=== PATIENT | male | born 1960 | race Caucasian/White ===

== ENCOUNTER 2020-01-13 00:01 | Inpatient (IN) | payer OTHER ==
[~2020-01-13] VITALS: Ht 167.6 cm; Wt 91.0 kg
[~2020-01-13 00:01] MED LIST: ETOMIDATE 20 MG/10 ML ONE; PROPOFOL 10 MG/ML, 100ML IV ONE; PROPOFOL 10 MG/ML, 20ML ONE; SUCCINYLCHOLINE 20 MG/ML, 10ML ONE; VECURONIUM 10 MG ONE
--- NOTE | 2020-01-13 00:05 | NUR ---
pt BIB [facility] c/o S/O sternal CP. pt is here from [facility] where keira [place]. pt reports that he sis not drive here, that he flew. pt has a hx of mulitple cardiac problems including CABG x4, stent x2 HTN, DM and high cholesterol. initial pain was 9/10, pt medicated [facility] [employer] and pain is now 2/10. code cardiac has been initiated.
[2020-01-13] MEDS ORDERED: NITROGLYCERIN/D5W PMX 250 ML IV PRN (00:09)
[2020-01-13 00:17] LABS: BASOPHILS # (AUTO) 0.04 x10^3/uL (0-0.1); BASOPHILS % (AUTO) 1 % (0-1); EOSINOPHILS # (AUTO) 0.14 x10^3/uL (0-0.4); EOSINOPHILS % (AUTO) 2 % (1-7); LYMPHOCYTES # (AUTO) 1.31 x10^3/uL (1-3.4); LYMPHOCYTES % (AUTO) 17 % (22-44); MD NO; MEAN PLATELET VOLUME 11.1 fL (7.4-10.4); MONOCYTES # (AUTO) 0.62 x10^3/uL (0.2-0.8); MONOCYTES % (AUTO) 8 % (2-9); NEUTROPHILS # (AUTO) 5.66 x10^3/uL (1.8-6.8); NEUTROPHILS % (AUTO) 73 % (42-75); PLATELET COUNT 140 x10^3/uL (130-400); RED BLOOD COUNT 4.43 x10^6/uL (4.38-5.82); RED CELL DISTRIBUTION WIDTH 12.9 % (9.4-14.8)
--- NOTE | 2020-01-13 00:28 | NUR ---
Dr. Thompson has been to bedside for eval. pt to go to [employer]. pt is resting in position of comfort. IV x2 placed via US by MD after multiple attempts. pt has signed consent for [employer]. pt positioning for comfort
[2020-01-13] MEDS ORDERED: NITROGLYCERIN/D5W PMX 250 ML ONE (00:30)
[2020-01-13] MEDS ORDERED: HEPARIN 25,000 UNITS/250ML PMX 250 ML IV PRN (00:30)
[2020-01-13] MEDS ORDERED: PLEASE ENTER ALLERGIES MC SCH (00:30)
[2020-01-13] MEDS ORDERED: HEPARIN 5,000 UNITS/ML, 1ML IV ONE (00:30)
--- NOTE | 2020-01-13 00:30 | NUR ---
5000 units Heparin given IVP per verbal order from Dr Thompson
--- NOTE | 2020-01-13 00:31 | NUR ---
pt now c/o increased SOB and difficulty breathing
[2020-01-13] MEDS ORDERED: MIDAZOLAM 1 MG/ML, 5ML ONE (00:32)
[2020-01-13] MEDS ORDERED: LIDOCAINE 1%, 20ML ONE (00:32)
[2020-01-13] MEDS ORDERED: TICAGRELOR 90 MG TABLET ONE (00:32)
[2020-01-13] MEDS ORDERED: BIVALIRUDIN 250 MG ONE (00:32)
[2020-01-13] MEDS ORDERED: NITROGLYCERIN 30 MCG/ML, 20ML VIAL ONE (00:32)
[2020-01-13] MEDS ORDERED: FENTANYL PF 100 MCG/2ML ONE (00:32)
[2020-01-13] MEDS ORDERED: HEPARIN 25,000 UNITS/250ML PMX 250 ML ONE (00:34)
[2020-01-13] MEDS ORDERED: ONDANSETRON 2MG/ML, 2ML ONE (00:35)
--- NOTE | 2020-01-13 00:38 | NUR ---
pt has now gone into resp distress and is to be intubated. 0038 20mg etomidate given IBVP 0039 100mg succinylcholine given IVP 0040 nitro gtt initiated at 50mcg/min 0041 8.0 ET tube placed with + color change 0042 nitro gtt rate change to 100mcg/min 0052 heparin gtt initiated at 90 units/hr, 900cc
--- NOTE | 2020-01-13 00:40 | NUR ---
ventilator settings rate: 18 mode: A/C TV: 500 Peep: 5 O2: 100%
[2020-01-13 00:43] LABS: INTERNATIONAL NORMALIZED RATIO 0.97 (0.93-1.1)
--- NOTE | 2020-01-13 00:49 | NUR ---
0049 propofol @ 10mcg/min 0055 propofol @ 15mcg/min
--- NOTE | 2020-01-13 00:50 | NUR ---
pt to have central line placement. setup completed Timeout done at bedside
--- NOTE | 2020-01-13 00:55 | NUR ---
BREANNA [phone]
--- NOTE | 2020-01-13 00:59 | NUR ---
propofol rate change to 15mcg/min nitro gtt rate cahnge to 100mcg/min
--- NOTE | 2020-01-13 01:00 | NUR ---
central line placement completed
--- NOTE | 2020-01-13 01:01 | NUR ---
CXR at [facility] for post intubation film and to verify central line placement
[2020-01-13] MEDS ORDERED: HYDROmorphone 2 MG/ML, 1ML ONE (01:04)
--- NOTE | 2020-01-13 01:07 | NUR ---
central line has been cleared for use. 5mg versed given IVP via VO from Dr. Leija at bedside 10mg vecuronium given IVP at bedside per VO from Dr. Leija
--- NOTE | 2020-01-13 01:07 | NUR ---
CXR has been to bedside. pt very agitated and anxious propofol increased to 20 mcg/min 2mg dilaudid given IVP per VO from Dr.. Leija at bedside
--- NOTE | 2020-01-13 01:11 | NUR ---
ET tube 24cm at lip propofol rate change to 10mcg/ min
--- NOTE | 2020-01-13 01:12 | NUR ---
nitro gtt rate change to 50 mcg/min per Dr. dodd at bedside
--- NOTE | 2020-01-13 01:14 | NUR ---
per Dr. Thompson at bedside, nitro gtt infusion stopped
--- NOTE | 2020-01-13 01:15 | NUR ---
propofol gtt rate change to 5mcg/min
--- NOTE | 2020-01-13 01:15 | NUR ---
laborer mine is ready for pt. RT at bedside to det up transport ventilator
[2020-01-13] MEDS ORDERED: FUROSEMIDE 40 MG/4 ML ONE (01:26)
[2020-01-13] MEDS ORDERED: HEPARIN 5,000 UNITS/ML, 1ML ONE (02:10)
[2020-01-13] MEDS ORDERED: PROPOFOL 100 ML IV PRN (03:16)
[2020-01-13] MEDS ORDERED: NOREPINEPHRINE 8 MG in SODIUM CHLORIDE 0.9% 242 ML IV PRN (03:16)
[2020-01-13] MEDS ORDERED: DEXTROSE 50%, 50ML SYRINGE IVPush PRN (03:30)
[2020-01-13] MEDS ORDERED: FAMOTIDINE 20 MG/2 ML IV SCH ×2 (03:30→21:00)
[2020-01-13] MEDS ORDERED: FENTANYL PF 100 MCG/2ML IVPush PRN (03:30)
[2020-01-13] MEDS ORDERED: LIDOCAINE-MPF 1%, 2ML ENDO PRN (03:30)
[2020-01-13] MEDS ORDERED: DEXTROSE 4 GM TAB.CHEW PO PRN (03:30)
[2020-01-13] MEDS ORDERED: SENNA/DOCUSATE TABLET NG PRN (03:30)
[2020-01-13] MEDS ORDERED: GLUCAGON 1 MG IM PRN (03:30)
[2020-01-13] MEDS ORDERED: BISACODYL 10 MG SUPP PR PRN (03:30)
[2020-01-13] MEDS ORDERED: PHARMACY MAY ADJ FOR RENAL FX MC SCH (03:30)
[2020-01-13] MEDS: ALBUTEROL/IPRATROPIUM 2.5MG/0.5MG, 3 ML INLINE SCH ×4 (03:30→14:06)
[2020-01-13] MEDS ORDERED: SENNA 176 MG/5 ML ORAL SOL NG PRN (03:30)
[2020-01-13] MEDS ORDERED: LACTULOSE 20 GM/30 ML UDC NG PRN (03:30)
[2020-01-13 04:00] VITALS: BP 148/85
[2020-01-13] MEDS ORDERED: REGULAR INSULIN 100 UNITS in SODIUM CHLORIDE 0.9% 99 ML IV PRN (04:00)
[2020-01-13 05:44] LABS: AMPHETAMINE SCREEN, URINE Negative (Negative); BARBITURATE SCREEN, URINE Negative (Negative); BENZODIAZEPINE SCREEN, URINE Positive (Negative); CANNABINOID SCREEN, URINE Positive (Negative); COCAINE SCREEN, URINE Negative (Negative); METHADONE SCREEN, URINE Negative (Negative); OPIATE SCREEN, URINE Negative (Negative)
[2020-01-13 05:50] LABS: MICROSCOPIC INDICATED
[2020-01-13] MEDS: DEXMEDETOMIDINE 200 MCG in SODIUM CHLORIDE 0.9% 48 ML IV PRN ×2 (07:54→14:01)
[2020-01-13] MEDS ORDERED: EPINEPHRINE SYRINGE 0.1 MG/ML, 10ML ONE (07:59)
[2020-01-13] MEDS: FUROSEMIDE 40 MG/4 ML IV SCH ×2 (08:07→16:31)
[2020-01-13] MEDS: ASPIRIN 81 MG TABLET CHEW PO SCH (08:08)
[2020-01-13] MEDS: CLOPIDOGREL 75 MG TABLET PO SCH (08:08)
[2020-01-13] MEDS: SODIUM CHLORIDE FLUSH 10ML SYR IVF SCH ×2 (08:09→20:12)
[2020-01-13 08:42] LABS: ALBUMIN 2.7 g/dL (3.4-5.0); ANION GAP 7 mmol/L (5-15); CALCIUM 7.4 mg/dL (8.5-10.1); CHLORIDE 104 mmol/L (98-107)
[2020-01-13] MEDS ORDERED: GLYB3TAB3 PO (08:44)
[2020-01-13] MEDS ORDERED: CLOP75TA52 PO (08:44)
[2020-01-13] MEDS ORDERED: NITR0.6T4 SL (08:44)
[2020-01-13] MEDS ORDERED: LISI40TA PO (08:44)
[2020-01-13] MEDS ORDERED: ASPI81TA45 PO (08:44)
[2020-01-13] MEDS ORDERED: ATOR80TA PO (08:44)
[2020-01-13] MEDS ORDERED: METO-99 PO (08:44)
[2020-01-13] MEDS ORDERED: DILT180C72 PO (08:44)
[2020-01-13 08:47] LABS: ALANINE AMINOTRANSFERASE 326 U/L (12-78); ALKALINE PHOSPHATASE 115 U/L (45-117); BILIRUBIN,TOTAL 0.3 mg/dL (0.2-1.0); CREATININE 2.81 mg/dL (0.7-1.3); TOTAL PROTEIN 6.7 g/dL (6.4-8.2)
[2020-01-13] MEDS: HEPARIN 5,000 UNITS/ML, 1ML SQ SCH ×2 (09:08→16:34)
[2020-01-13] MEDS: INSULIN GLARGINE 100 UNITS/ML, PEN SQ-INSULIN SCH ×2 (10:03→20:09)
[2020-01-13] MEDS: METOPROLOL TARTRATE 100 MG TAB PO SCH ×2 (10:04→20:05)
[2020-01-13] MEDS: INSULIN LISPRO 100 UNITS/ML, PEN SQ-INSULIN SCH ×3 (11:06→20:10)
[2020-01-13] MEDS ORDERED: OXYcodone IR 5MG TABLET PO PRN (16:30)
[2020-01-13] MEDS ORDERED: MORPHINE SULFATE 4 MG/ML, 1ML IVPush PRN (16:30)
[2020-01-13] MEDS: ATORVASTATIN 40 MG TABLET PO SCH (20:05)
[2020-01-13] MEDS ORDERED: FUROSEMIDE 40 MG/4 ML IV ONE (21:00)
[2020-01-13] MEDS ORDERED: LOVASTATIN 40 MG TABLET PO SCH (21:00)
[2020-01-14] MEDS: HEPARIN 5,000 UNITS/ML, 1ML SQ SCH ×3 (00:40→16:46)
[2020-01-14 03:52] VITALS: BP 149/51
[2020-01-14 04:55] LABS: BASOPHILS # (AUTO) 0.01 x10^3/uL (0-0.1); BASOPHILS % (AUTO) 0 % (0-1); EOSINOPHILS # (AUTO) 0.02 x10^3/uL (0-0.4); EOSINOPHILS % (AUTO) 0 % (1-7); LYMPHOCYTES # (AUTO) 0.88 x10^3/uL (1-3.4); LYMPHOCYTES % (AUTO) 7 % (22-44); MD NO; MEAN CORPUSCULAR HEMOGLOBIN 27.7 pg (27.5-34.5); MEAN CORPUSCULAR HGB CONC 33.6 g/dL (33.2-36.2); MEAN PLATELET VOLUME 10.2 fL (7.4-10.4); MONOCYTES # (AUTO) 1.18 x10^3/uL (0.2-0.8); MONOCYTES % (AUTO) 9 % (2-9); NEUTROPHILS # (AUTO) 10.56 x10^3/uL (1.8-6.8); NEUTROPHILS % (AUTO) 83 % (42-75); PLATELET COUNT 134 x10^3/uL (130-400); RED BLOOD COUNT 3.85 x10^6/uL (4.38-5.82); RED CELL DISTRIBUTION WIDTH 12.9 % (9.4-14.8)
[2020-01-14 05:01] LABS: ANION GAP 8 mmol/L (5-15); CALCIUM 8.3 mg/dL (8.5-10.1); CHLORIDE 103 mmol/L (98-107)
[2020-01-14 05:02] LABS: CREATININE 2.39 mg/dL (0.7-1.3)
[2020-01-14] MEDS: INSULIN LISPRO 100 UNITS/ML, PEN SQ-INSULIN SCH ×4 (06:24→20:01)
[2020-01-14] MEDS ORDERED: MAGNESIUM SULFATE PMX 4GM/100M 100 ML IV ONE (06:30)
[2020-01-14] MEDS: METOLAZONE 5 MG TABLET PO SCH ×2 (07:26→16:45)
[2020-01-14] MEDS: FUROSEMIDE 40 MG/4 ML IV SCH ×2 (07:26→16:45)
[2020-01-14] MEDS: SODIUM CHLORIDE FLUSH 10ML SYR IVF SCH ×2 (07:34→20:01)
[2020-01-14] MEDS: CLOPIDOGREL 75 MG TABLET PO SCH (08:22)
[2020-01-14] MEDS: METOPROLOL TARTRATE 100 MG TAB PO SCH ×2 (08:22→20:00)
[2020-01-14] MEDS: ASPIRIN 81 MG TABLET CHEW PO SCH (08:22)
[2020-01-14] MEDS: INSULIN GLARGINE 100 UNITS/ML, PEN SQ-INSULIN SCH ×2 (08:24→20:01)
[2020-01-14] MEDS: ATORVASTATIN 40 MG TABLET PO SCH (20:00)
[2020-01-14] MEDS: FAMOTIDINE 20 MG TABLET PO SCH (20:00)
[2020-01-15] MEDS: HEPARIN 5,000 UNITS/ML, 1ML SQ SCH ×3 (01:23→16:50)
[2020-01-15 04:00] VITALS: BP 112/64
[2020-01-15 04:28] LABS: BASOPHILS # (AUTO) 0.04 x10^3/uL (0-0.1); BASOPHILS % (AUTO) 0 % (0-1); EOSINOPHILS # (AUTO) 0.01 x10^3/uL (0-0.4); EOSINOPHILS % (AUTO) 0 % (1-7); LYMPHOCYTES # (AUTO) 0.89 x10^3/uL (1-3.4); LYMPHOCYTES % (AUTO) 8 % (22-44); MD NO; MEAN CORPUSCULAR HEMOGLOBIN 27.7 pg (27.5-34.5); MEAN CORPUSCULAR HGB CONC 33.6 g/dL (33.2-36.2); MEAN PLATELET VOLUME 10.7 fL (7.4-10.4); MONOCYTES # (AUTO) 0.94 x10^3/uL (0.2-0.8); MONOCYTES % (AUTO) 9 % (2-9); NEUTROPHILS # (AUTO) 8.94 x10^3/uL (1.8-6.8); NEUTROPHILS % (AUTO) 83 % (42-75); PLATELET COUNT 135 x10^3/uL (130-400); RED BLOOD COUNT 3.34 x10^6/uL (4.38-5.82); RED CELL DISTRIBUTION WIDTH 12.6 % (9.4-14.8)
[2020-01-15 04:35] LABS: ANION GAP 8 mmol/L (5-15); CALCIUM 8.4 mg/dL (8.5-10.1); CHLORIDE 97 mmol/L (98-107); CREATININE 2.95 mg/dL (0.7-1.3)
[2020-01-15] MEDS: INSULIN LISPRO 100 UNITS/ML, PEN SQ-INSULIN SCH ×4 (07:43→20:15)
[2020-01-15] MEDS: FUROSEMIDE 40 MG/4 ML IV SCH (07:44)
[2020-01-15] MEDS: METOLAZONE 5 MG TABLET PO SCH (07:44)
[2020-01-15] MEDS: INSULIN GLARGINE 100 UNITS/ML, PEN SQ-INSULIN SCH ×2 (07:44→20:14)
[2020-01-15] MEDS: ASPIRIN 81 MG TABLET CHEW PO SCH (08:31)
[2020-01-15] MEDS: CLOPIDOGREL 75 MG TABLET PO SCH (08:31)
[2020-01-15] MEDS: METOPROLOL TARTRATE 100 MG TAB PO SCH ×2 (08:32→20:13)
[2020-01-15] MEDS: SODIUM CHLORIDE FLUSH 10ML SYR IVF SCH ×2 (08:32→20:13)
[2020-01-15 14:30] VITALS: BP 114/65
[2020-01-15 18:49] VITALS: BP 123/78
[2020-01-15] MEDS: ATORVASTATIN 40 MG TABLET PO SCH (20:13)
[2020-01-15] MEDS: FAMOTIDINE 20 MG TABLET PO SCH (20:13)
[2020-01-16 00:01] VITALS: BP 111/73
[2020-01-16] MEDS: HEPARIN 5,000 UNITS/ML, 1ML SQ SCH ×3 (01:23→16:31)
[2020-01-16 04:34] LABS: BASOPHILS # (AUTO) 0.03 x10^3/uL (0-0.1); BASOPHILS % (AUTO) 0 % (0-1); EOSINOPHILS # (AUTO) 0.02 x10^3/uL (0-0.4); EOSINOPHILS % (AUTO) 0 % (1-7); LYMPHOCYTES # (AUTO) 0.86 x10^3/uL (1-3.4); LYMPHOCYTES % (AUTO) 9 % (22-44); MD NO; MEAN CORPUSCULAR HEMOGLOBIN 28.5 pg (27.5-34.5); MEAN CORPUSCULAR HGB CONC 34.7 g/dL (33.2-36.2); MONOCYTES # (AUTO) 0.73 x10^3/uL (0.2-0.8); MONOCYTES % (AUTO) 8 % (2-9); NEUTROPHILS # (AUTO) 7.96 x10^3/uL (1.8-6.8); NEUTROPHILS % (AUTO) 83 % (42-75); PLATELET COUNT 124 x10^3/uL (130-400); RED BLOOD COUNT 3.15 x10^6/uL (4.38-5.82); RED CELL DISTRIBUTION WIDTH 12.8 % (9.4-14.8)
[2020-01-16 04:41] LABS: ANION GAP 10 mmol/L (5-15); CALCIUM 7.9 mg/dL (8.5-10.1); CHLORIDE 96 mmol/L (98-107); CREATININE 3.45 mg/dL (0.7-1.3)
[2020-01-16 07:42] VITALS: BP 144/86
[2020-01-16] MEDS: INSULIN GLARGINE 100 UNITS/ML, PEN SQ-INSULIN SCH ×2 (07:56→21:56)
[2020-01-16] MEDS: INSULIN LISPRO 100 UNITS/ML, PEN SQ-INSULIN SCH ×4 (07:56→21:55)
[2020-01-16] MEDS: METOPROLOL TARTRATE 100 MG TAB PO SCH ×2 (07:57→21:55)
[2020-01-16] MEDS: ASPIRIN 81 MG TABLET CHEW PO SCH (07:57)
[2020-01-16] MEDS: CLOPIDOGREL 75 MG TABLET PO SCH (07:57)
[2020-01-16] MEDS: SODIUM CHLORIDE FLUSH 10ML SYR IVF SCH ×2 (08:00→21:55)
[2020-01-16 13:04] VITALS: BP 116/72
[2020-01-16 21:48] VITALS: BP 123/76
[2020-01-16] MEDS: ATORVASTATIN 40 MG TABLET PO SCH (21:55)
[2020-01-16] MEDS: FAMOTIDINE 20 MG TABLET PO SCH (21:55)
[2020-01-17] MEDS: HEPARIN 5,000 UNITS/ML, 1ML SQ SCH ×3 (00:36→16:57)
[2020-01-17 00:39] VITALS: BP 115/79
[2020-01-17 05:40] LABS: CHLORIDE 95 mmol/L (98-107)
[2020-01-17 05:41] LABS: BASOPHILS # (AUTO) 0.02 x10^3/uL (0-0.1); BASOPHILS % (AUTO) 0 % (0-1); EOSINOPHILS # (AUTO) 0.05 x10^3/uL (0-0.4); EOSINOPHILS % (AUTO) 1 % (1-7); LYMPHOCYTES # (AUTO) 0.95 x10^3/uL (1-3.4); LYMPHOCYTES % (AUTO) 12 % (22-44); MD NO; MEAN CORPUSCULAR HEMOGLOBIN 27.2 pg (27.5-34.5); MEAN PLATELET VOLUME 11.4 fL (7.4-10.4); MONOCYTES # (AUTO) 0.82 x10^3/uL (0.2-0.8); MONOCYTES % (AUTO) 10 % (2-9); NEUTROPHILS # (AUTO) 6.34 x10^3/uL (1.8-6.8); NEUTROPHILS % (AUTO) 78 % (42-75); PLATELET COUNT 150 x10^3/uL (130-400); RED BLOOD COUNT 3.22 x10^6/uL (4.38-5.82); RED CELL DISTRIBUTION WIDTH 12.4 % (9.4-14.8)
[2020-01-17 05:46] LABS: ANION GAP 13 mmol/L (5-15); CALCIUM 8.6 mg/dL (8.5-10.1); CREATININE 3.79 mg/dL (0.7-1.3)
[2020-01-17 07:06] VITALS: BP 123/84
[2020-01-17] MEDS: INSULIN LISPRO 100 UNITS/ML, PEN SQ-INSULIN SCH ×4 (07:46→20:29)
[2020-01-17] MEDS: SODIUM CHLORIDE FLUSH 10ML SYR IVF SCH ×2 (09:21→20:08)
[2020-01-17] MEDS: ASPIRIN 81 MG TABLET CHEW PO SCH (09:22)
[2020-01-17] MEDS: CLOPIDOGREL 75 MG TABLET PO SCH (09:22)
[2020-01-17] MEDS: INSULIN GLARGINE 100 UNITS/ML, PEN SQ-INSULIN SCH ×2 (09:23→20:28)
[2020-01-17 13:45] VITALS: BP 139/88
[2020-01-17] MEDS ORDERED: METOPROLOL TARTRATE 50 MG TAB PO ONE (18:00)
[2020-01-17 19:02] VITALS: BP 123/84
[2020-01-17] MEDS: ATORVASTATIN 40 MG TABLET PO SCH (20:07)
[2020-01-17] MEDS: FAMOTIDINE 20 MG TABLET PO SCH (20:07)
[2020-01-17] MEDS ORDERED: CARV6.252 PO (20:55)
[2020-01-17] MEDS ORDERED: omeprazole (20:55)
[2020-01-18 00:01] VITALS: BP 121/73
[2020-01-18] MEDS: HEPARIN 5,000 UNITS/ML, 1ML SQ SCH ×3 (02:04→17:16)
[2020-01-18 05:27] LABS: BASOPHILS # (AUTO) 0.02 x10^3/uL (0-0.1); BASOPHILS % (AUTO) 0 % (0-1); EOSINOPHILS # (AUTO) 0.09 x10^3/uL (0-0.4); EOSINOPHILS % (AUTO) 1 % (1-7); LYMPHOCYTES # (AUTO) 0.85 x10^3/uL (1-3.4); LYMPHOCYTES % (AUTO) 12 % (22-44); MD NO; MEAN CORPUSCULAR HEMOGLOBIN 27.9 pg (27.5-34.5); MEAN PLATELET VOLUME 11.6 fL (7.4-10.4); MONOCYTES # (AUTO) 0.81 x10^3/uL (0.2-0.8); MONOCYTES % (AUTO) 11 % (2-9); NEUTROPHILS # (AUTO) 5.46 x10^3/uL (1.8-6.8); NEUTROPHILS % (AUTO) 76 % (42-75); PLATELET COUNT 159 x10^3/uL (130-400); RED BLOOD COUNT 3.13 x10^6/uL (4.38-5.82); RED CELL DISTRIBUTION WIDTH 13.2 % (9.4-14.8)
[2020-01-18 05:29] LABS: ANION GAP 8 mmol/L (5-15); CALCIUM 8.9 mg/dL (8.5-10.1); CHLORIDE 96 mmol/L (98-107); CREATININE 3.25 mg/dL (0.7-1.3)
[2020-01-18] MEDS: METOPROLOL SUCCINATE 50 MG TAB.ER.24H PO SCH (05:39)
[2020-01-18 07:00] VITALS: BP 128/83
[2020-01-18] MEDS: INSULIN LISPRO 100 UNITS/ML, PEN SQ-INSULIN SCH ×4 (07:00→21:09)
[2020-01-18] MEDS: CLOPIDOGREL 75 MG TABLET PO SCH (09:13)
[2020-01-18] MEDS: ASPIRIN 81 MG TABLET CHEW PO SCH (09:13)
[2020-01-18] MEDS: INSULIN GLARGINE 100 UNITS/ML, PEN SQ-INSULIN SCH ×2 (09:14→21:09)
[2020-01-18] MEDS: SODIUM CHLORIDE FLUSH 10ML SYR IVF SCH ×2 (09:15→21:10)
[2020-01-18 14:05] VITALS: BP 126/82
[2020-01-18 19:23] VITALS: BP 126/80
[2020-01-18] MEDS: FAMOTIDINE 20 MG TABLET PO SCH (21:09)
[2020-01-18] MEDS: ATORVASTATIN 40 MG TABLET PO SCH (21:09)
[2020-01-19 00:09] VITALS: BP 118/74
[2020-01-19] MEDS: HEPARIN 5,000 UNITS/ML, 1ML SQ SCH ×2 (00:13→09:00)
[2020-01-19 05:08] LABS: BASOPHILS # (AUTO) 0.06 x10^3/uL (0-0.1); BASOPHILS % (AUTO) 1 % (0-1); EOSINOPHILS # (AUTO) 0.13 x10^3/uL (0-0.4); EOSINOPHILS % (AUTO) 2 % (1-7); LYMPHOCYTES # (AUTO) 0.79 x10^3/uL (1-3.4); LYMPHOCYTES % (AUTO) 11 % (22-44); MD NO; MEAN CORPUSCULAR HEMOGLOBIN 27.3 pg (27.5-34.5); MEAN CORPUSCULAR HGB CONC 33.2 g/dL (33.2-36.2); MEAN PLATELET VOLUME 10.9 fL (7.4-10.4); MONOCYTES # (AUTO) 0.86 x10^3/uL (0.2-0.8); MONOCYTES % (AUTO) 12 % (2-9); NEUTROPHILS # (AUTO) 5.24 x10^3/uL (1.8-6.8); NEUTROPHILS % (AUTO) 74 % (42-75); PLATELET COUNT 166 x10^3/uL (130-400); RED BLOOD COUNT 3.14 x10^6/uL (4.38-5.82); RED CELL DISTRIBUTION WIDTH 12.7 % (9.4-14.8)
[2020-01-19 05:14] LABS: ANION GAP 11 mmol/L (5-15); CALCIUM 8.7 mg/dL (8.5-10.1); CHLORIDE 100 mmol/L (98-107); CREATININE 2.81 mg/dL (0.7-1.3)
[2020-01-19] MEDS: METOPROLOL SUCCINATE 50 MG TAB.ER.24H PO SCH (06:04)
[2020-01-19 07:50] VITALS: BP 119/78
[2020-01-19] MEDS ORDERED: METO-93 PO (09:11)
[2020-01-19] MEDS: SODIUM CHLORIDE FLUSH 10ML SYR IVF SCH (09:27)
[2020-01-19] MEDS: CLOPIDOGREL 75 MG TABLET PO SCH (09:27)
[2020-01-19] MEDS: ASPIRIN 81 MG TABLET CHEW PO SCH (09:27)
[2020-01-19] MEDS: INSULIN LISPRO 100 UNITS/ML, PEN SQ-INSULIN SCH (09:27)
[2020-01-19] MEDS: INSULIN GLARGINE 100 UNITS/ML, PEN SQ-INSULIN SCH (09:31)
== END 2020-01-19 10:25 | disposition home or self-care (01) | DRG 280 ==
LOC: ED 01:10 → EDIP 01:26 → CCU 03:02 → 5SO 01-15 18:21 → DCLOUNGE 01-19 10:18
PROVIDERS: ADMIT Family Medicine; ATTEND Hospitalist
PROC: B2131ZZ Fluoroscopy of Multiple Coronary Artery Bypass Grafts using Low Osmolar Contrast (ICD-10-PCS; principal; 2020-01-13)
PROC: B2111ZZ Fluoroscopy of Multiple Coronary Arteries using Low Osmolar Contrast (ICD-10-PCS; 2020-01-13)
PROC: 4A023N7 Measurement of Cardiac Sampling and Pressure, Left Heart, Percutaneous Approach (ICD-10-PCS; 2020-01-13)
PROC: B2151ZZ Fluoroscopy of Left Heart using Low Osmolar Contrast (ICD-10-PCS; 2020-01-13)
PROC: 0BH17EZ Insertion of Endotracheal Airway into Trachea, Via Natural or Artificial Opening (ICD-10-PCS; 2020-01-13)
PROC: 02HV33Z Insertion of Infusion Device into Superior Vena Cava, Percutaneous Approach (ICD-10-PCS; 2020-01-13)
PROC: B548ZZA Ultrasonography of Superior Vena Cava, Guidance (ICD-10-PCS; 2020-01-13)
PROC: 5A1935Z Respiratory Ventilation, Less than 24 Consecutive Hours (ICD-10-PCS; 2020-01-13)
DX: I21.4 Non-ST elevation (NSTEMI) myocardial infarction (principal); J96.01 Acute respiratory failure with hypoxia; N17.0 Acute kidney failure with tubular necrosis; G93.41 Metabolic encephalopathy; I50.33 Acute on chronic diastolic (congestive) heart failure; I46.9 Cardiac arrest, cause unspecified; I26.99 Other pulmonary embolism without acute cor pulmonale; I13.0 Hypertensive heart and chronic kidney disease with heart failure and stage 1 through stage 4 chronic kidney disease, or unspecified chronic kidney disease; I16.1 Hypertensive emergency; I70.8 Atherosclerosis of other arteries; E11.51 Type 2 diabetes mellitus with diabetic peripheral angiopathy without gangrene; E11.65 Type 2 diabetes mellitus with hyperglycemia; E78.5 Hyperlipidemia, unspecified; E83.42 Hypomagnesemia; E66.9 Obesity, unspecified; E11.22 Type 2 diabetes mellitus with diabetic chronic kidney disease; I25.10 Atherosclerotic heart disease of native coronary artery without angina pectoris; I25.5 Ischemic cardiomyopathy; Z95.5 Presence of coronary angioplasty implant and graft; Z87.891 Personal history of nicotine dependence; Z95.1 Presence of aortocoronary bypass graft; Z68.32 Body mass index [BMI] 32.0-32.9, adult; Z88.8 Allergy status to other drugs, medicaments and biological substances
CPT/HCPCS: 31500; 36415; 36555; 36600; 84145; 93459; 99291; 99292; J3490; 71045; 80047; 80048; 80053; 80307; 81001; 82803; 82962; 83036; 83735; 83880; 84443; 84478; 84484; 85025; 85520; 85610; 85730; 87040; 87081; 87086; 87635; 93005; 93306; 94002; 94003; 94150; 94640; 94660; C1769; C1894; G0378; J0583; J1644; J1815; J1940; J2250; J2704; J3010; J0330; J3475; Q9967